=== PATIENT | male | born 1995 | race Hispanic/Latino ===

== ENCOUNTER 2017-11-01 20:45 | Observation (INO) | payer MEDICAID, OTHER ==
[~2017-11-01] VITALS: Ht 170.2 cm; Wt 82.0 kg
[2017-11-01 22:08] LABS: APPEARANCE,URINE Clear (CLEAR); BILIRUBIN,URINE Negative (NEGATIVE); COLOR,URINE Yellow (YELLOW); GLUCOSE, URINE (UA) Negative (NEGATIVE); KETONES,URINE Negative (NEGATIVE); LEUKOCYTE ESTERASE ,URINE Negative (NEGATIVE); NITRATE,URINE Negative (NEGATIVE); OCCULT BLOOD,URINE Negative (NEGATIVE); PH,URINE 5.5 (5.0-8.0); PROTEIN,URINE Negative (NEGATIVE)
[2017-11-01 22:18] LABS: BASOPHILS % (AUTO) 1.8 % (0.0-5.0); EOSINOPHILS % (AUTO) 1.2 % (0.0-8.0); HEMATOCRIT 44.9 % (42-54); LYMPHOCYTES % (AUTO) 13.7 % (21.0-51.0); MEAN CORPUSCULAR HEMOGLOBIN 29.6 pg (27.0-33.0); MEAN CORPUSCULAR HGB CONC 34.2 g/dL (32.0-36.0); MEAN CORPUSCULAR VOLUME 86.7 fL (79-99); MONOCYTES % (AUTO) 6.7 % (3.0-13.0); NEUTROPHILS % (AUTO) 76.6 % (40.0-77.0); PLATELET COUNT (AUTO) 261 K/uL (130-400); RED BLOOD CELL COUNT(AUTO) 5.18 MIL/uL (4.50-6.20); RED CELL DISTRIBUTION WIDTH 12.6 % (11.0-15.5); WHITE BLOOD COUNT (AUTO) 16.3 K/uL (4.8-10.8)
[2017-11-01] MEDS ORDERED: KETOROLAC TROMETHAMINE 30MG/ML ONE (22:36)
[2017-11-01] MEDS ORDERED: IOPAMIDOL-370 75 ML VIAL IV ONE (23:02)
[2017-11-01 23:04] LABS: ALBUMIN 4.2 g/dL (3.5-5.0); BILIRUBIN,TOTAL 0.8 mg/dL (0.2-1.0); CREATININE 0.9 mg/dL (0.5-1.5); POTASSIUM 3.8 mmol/L (3.5-5.1); TOTAL PROTEIN, SERUM 7.9 g/dL (6.0-8.3)
[2017-11-02] VITALS (18 sets, daily range): BP systolic 101–119; BP diastolic 51–75
[2017-11-02] MEDS ORDERED: ONDANSETRON HCL 4 MG/2 ML VIAL ONE ×3 (00:29→11:35)
[2017-11-02] MEDS ORDERED: MORPHINE SULFATE 4 MG/1ML SYG ONE ×4 (00:30→09:16)
[2017-11-02] MEDS ORDERED: ZOSYN 3.375GM+NS 50ML 50 ML IV ONE ×2 (00:38→09:16)
[2017-11-02] MEDS ORDERED: SODIUM CHLORIDE 0.9% 1000ML 1,000 ML IV ONE (02:27)
[2017-11-02] MEDS ORDERED: PHARMACY COMMUNICATION MISC SCH (02:30)
[2017-11-02] MEDS ORDERED: ACETAMINOPHEN 325 MG TAB PO PRN (02:30)
[2017-11-02] MEDS ORDERED: ONDANSETRON HCL 4 MG/2 ML VIAL IVP PRN (02:30)
[2017-11-02] MEDS ORDERED: SODIUM CHLORIDE 0.9% 1000ML 1,000 ML IV SCH (02:30)
[2017-11-02] MEDS ORDERED: ZOSYN 3.375GM+NS 50ML 50 ML IV SCH (03:00)
[2017-11-02] MEDS ORDERED: GLYCOPYRROLATE 0.2 MG/ML 5 ML VIAL ONE (11:35)
[2017-11-02] MEDS ORDERED: PROPOFOL 10 MG/ML 20ML VIAL IV ONE ×2 (11:36→12:37)
[2017-11-02] MEDS ORDERED: DEXAMETHASONE SOD PHOSPHATE 10MG/ML 1ML VIAL ONE (11:36)
[2017-11-02] MEDS ORDERED: LIDOCAINE PF 2% 5ML ABBOJECT ONE (11:36)
[2017-11-02] MEDS ORDERED: MIDAZOLAM HCL 1 MG/ML 2ML VIAL ONE (11:36)
[2017-11-02] MEDS ORDERED: NEOSTIGMINE METHYLSULFATE 1MG/ML IV ONE (11:36)
[2017-11-02] MEDS ORDERED: FENTANYL CITRATE PF 50 MCG/1 ML 2ML VIAL ONE ×2 (11:36→11:57)
[2017-11-02] MEDS ORDERED: LIDOCAINE HCL 2% JELLY 5 ML ONE (11:38)
[2017-11-02] MEDS ORDERED: PHENYLEPHRINE HCL 10 MG/ML 1ML VIAL IV ONE (11:38)
[2017-11-02] MEDS ORDERED: ROCURONIUM BROMIDE 10MG/1ML 5ML VL ONE (11:38)
[2017-11-02] MEDS ORDERED: MEPERIDINE-PF 25 MG/ML SYG ONE ×2 (12:53→13:11)
[2017-11-02] MEDS ORDERED: BACITRACIN 50,000 UNIT VIAL ONE (13:04)
[2017-11-02] MEDS ORDERED: MORPHINE SULFATE 10 MG/ML 1ML SYG ONE (13:37)
[2017-11-02] MEDS ORDERED: OXYCODONE/ACETAMIN 5/325MG TAB PO PRN (15:15)
== END 2017-11-02 16:10 | disposition home or self-care (01) ==
LOC: EDH 20:45 → EDHIP 11-02 00:30 → 4CH 11-02 14:09
PROVIDERS: ADMIT Surgery; ATTEND Surgery
DX: K61.1 Rectal abscess (principal); Z88.8 Allergy status to other drugs, medicaments and biological substances
CPT/HCPCS: 36415; 46040; 72193; 80053; 81003; 85025; 87070; 87076; 87205; 99285; A4606; A6446; G0378 ×16; J1100; J1885; J2001; J2175 ×2; J2250; J2270 ×5; J2370; J2405 ×3; J2543 ×2; J2704 ×2; J2710; J3010 ×2; J3490 ×2; J7030; Q9967